=== PATIENT | male | born 1955 | race Caucasian/White ===

== ENCOUNTER 2019-10-03 06:11 | Day surgery (SDC) | payer OTHER ==
[~2019-10-03 06:11] MED LIST: Lactated Ringers 1,000 ML IV SCH; Lidocaine 1%/Sod Bicarbonate in NS 8.4% 1 ML Syringe IDERM PRN; Sodium Chloride 0.9% 10 ML Syringe FLUSH PRN
[2019-10-03] MEDS ORDERED: Lidocaine 1% 4 ML ONE (06:45)
[2019-10-03] MEDS ORDERED: Propofol 200 MG/20 ML SDV ONE ×4 (06:46→08:31)
--- NOTE | 2019-10-03 06:59 | PCM.HP.2 ---
H&P History of Present Illness - General Date of Service: 10/03/19 Source of Information: Patient History Limitations: Reports: No Limitations - History of Present Illness Other HPI/Comments: Due for screening colonoscopy. No worrisome symptoms or risk factors. - Related Data Allergies/Adverse Reactions: Allergies Allergy/AdvReac Type Severity Reaction Status Date / Time venom-honey bee Allergy Airway Verified 10/02/19 12:59 [bee venom (honey bee)] Tightness wasps Allergy Anaphylactic Uncoded 10/02/19 12:59 Shock Home Medications: Home Meds Aspirin 81 mg PO DAILY 10/02/19 [History] Calcium Carbonate [Calcium] 600 mg PO DAILY 10/02/19 [History] Cholecalciferol (Vitamin D3) [Vitamin D3] 2,000 unit PO DAILY 10/02/19 [History] Cinnamon Bark [Cinnamon] 500 mg PO DAILY 10/02/19 [History] Cyclobenzaprine [Flexeril] 10 mg PO BID PRN 10/02/19 [History] EPINEPHrine [Epipen] 1 dose IM ONETIME PRN 10/02/19 [History] Fish Oil/[place]-3 Fatty Acids [Fish Oil 1,000 MG] 1 gm PO DAILY 10/02/19 [History ] Insulin Degludec [Tresiba] 65 units SQ QAM 10/02/19 [History] Multivitamin [Daily Samuel] 1 tab PO DAILY 10/02/19 [History] Pioglitazone [Actos] 30 mg PO DAILY 10/02/19 [History] Turm/Ging/Americo/Yuc/Durga/Gayle/Hor [Tumersaid Tablet] 1 tab PO DAILY 10/02/19 [ History] Ubidecarenone [Coq-10] 100 mg PO DAILY 10/02/19 [History] atorvaSTATin Calcium [Atorvastatin Calcium] 10 mg PO DAILY 10/02/19 [History] lisinopriL [Lisinopril] 30 mg PO DAILY 10/02/19 [History] metFORMIN HCl [Metformin HCl] 1,000 mg PO BID 10/02/19 [History] Past Medical History HEENT History: Reports: None Cardiovascular History: Reports: High Cholesterol, Hypertension Respiratory History: Reports: Sleep Apnea Gastrointestinal History: Reports: None [employer] History: Reports: None Musculoskeletal History: Reports: Other (See Below) Other Musculoskeletal History: muscle spasm Neurological History: Reports: None Psychiatric History: Reports: None Endocrine/Metabolic History: Reports: Diabetes, Type II, Obesity/BMI 30+, Vitamin D Deficiency Hematologic History: Reports: None Immunologic History: Reports: None Oncologic (Cancer) History: Reports: None Dermatologic History: Reports: Other (See Below) Other Dermatologic History: onchomycosis - Past Surgical History Head Surgeries/Procedures: Reports: None HEENT Surgical History: Reports: LASIK, Tonsillectomy Cardiovascular Surgical History: Reports: None Respiratory Surgical History: Reports: None Other Male Surgeries/Procedures: testis surgery for hydrocele in approximately 2004 Endocrine Surgical History: Reports: None Neurological Surgical History: Reports: None Musculoskeletal Surgical History: Reports: None Oncologic Surgical History: Reports: None Dermatological Surgical History: Reports: None Social & Family History - Tobacco Use Smoking Status *Q: Former Smoker Used Tobacco, but Quit: Yes Month/Year Tobacco Last Used: 2004 - Caffeine Use Caffeine Use: Reports: Coffee, Tea - Alcohol Use Days Per Week of Alcohol Use: 7 Number of Drinks Per Day: 1 Total Drinks Per Week: 7 - Recreational Drug Use Recreational Drug Use: No Drug Use in Last 12 Months: No H&P Review of Systems - Review of Systems: Review Of Systems: See Below General: Reports: No Symptoms Exam - Exam Exam: See Below - Vital Signs Vital Signs: Last Vital Signs Temp 36.6 C 10/03/19 06:35 Pulse 71 10/03/19 06:35 Resp 16 10/03/19 06:35 BP 154/62 H 10/03/19 06:35 Pulse Ox 97 10/03/19 06:35 Weight: 147.418 kg - Exam General: Alert, Oriented GI/Abdominal Exam: Soft, Non-Tender Sepsis Event Note - Focused Exam Vital Signs: Vital Signs Temp Pulse Resp BP Pulse Ox 10/03/19 06:35 36.6 C 71 16 154/62 H 97 Date Exam was Performed: 10/03/19 Time Exam was Performed: 06:58 Problem List Initiated/Reviewed/Updated: Yes Orders Last 24hrs: Active Orders 24 hr Category Date Time Status Blood Glucose Check, Bedside [RC] ONETIME Care 10/03/19 00:01 Active Peripheral IV Care [RC] . DIRECTED Care 10/03/19 00:01 Active Peripheral IV Care [RC] . DIRECTED Care 10/03/19 00:01 Active Verify Patient Consent Obtain [RC] ASDIRECTED Care 10/03/19 00:01 Active Verify Patient Consent Obtain [RC] ASDIRECTED Care 10/03/19 00:01 Active Lactated Ringers [Ringers, Lactated] 1,000 ml Med 10/03/19 00:01 Active IV ASDIRECTED Lidocaine 1%/Sod Bicarbonate [Buffered Lidocaine 1% in Med 10/03/19 00:01 Active NS 8.4%] 0.25 ml IDERM ONETIME PRN Sodium Chloride 0.9% [Saline Flush] Med 10/03/19 00:01 Active 10 ml FLUSH ASDIRECTED PRN Medication Administration Instruction [OM.PC] Routine Oth 10/03/19 00:01 Ordered Medication Administration Instruction [OM.PC] Routine Oth 10/03/19 00:01 Ordered Peripheral IV Insertion Adult [OM.PC] Routine Oth 10/03/19 00:01 Ordered Peripheral IV Insertion Adult [OM.PC] Routine Oth 10/03/19 00:01 Ordered Medication Orders Lactated Ringer's (Ringers, Lactated) 1,000 mls @ 125 mls/hr IV ASDIRECTED DESTINY Stop: 10/03/19 23:00 Last Admin: 10/03/19 06:25 Dose: 125 mls/hr Lidocaine/Sodium Bicarbonate (Buffered Lidocaine 1% In Ns 8.4%) 0.25 ml IDERM ONETIME PRN PRN Reason: Prior to IV Start Stop: 10/03/19 18:00 Last Admin: 10/03/19 06:40 Dose: 0.25 ml Sodium Chloride (Saline Flush) 10 ml FLUSH ASDIRECTED PRN PRN Reason: Keep Vein Open Stop: 10/03/19 18:00 Assessment/Plan Comment:: screening colonoscopy today as scheduled - Mortality Measure Prognosis:: Good
--- NOTE | 2019-10-03 07:01 | PCM.PREANE ---
Preanesthetic Assessment - Procedure Proposed Procedure: Screening colonoscopy - Anesthesia/Transfusion/Family Hx Anesthesia History: Prior Anesthesia Without Reaction Family History of Anesthesia Reaction: No Transfusion History: No Prior Transfusion(s) Additional History: No history of anesthesia problems or difficulty with intubation - Review of Systems General: No Symptoms Pulmonary: No Symptoms Cardiovascular: No Symptoms Gastrointestinal: No Symptoms Neurological: No Symptoms Other: Reports: None - Physical Assessment NPO Status Date: 10/03/19 NPO Status Time: 04:00 Vital Signs: Last Vital Signs Temp 36.6 C 10/03/19 06:35 Pulse 71 10/03/19 06:35 Resp 16 10/03/19 06:35 BP 154/62 H 10/03/19 06:35 Pulse Ox 97 10/03/19 06:35 Height: 6 ft 2 in Weight: 147.418 kg ASA Class: 2 Mental Status: Alert & Oriented x3 Airway Class: Mallampati = 2 Dentition: Reports: Normal Dentition, Bridge ROM/Head Extension: Full Lungs: Clear to Auscultation, Normal Respiratory Effort, Other (mild "tightness " in upper airway a.e.b. "hearing air move" in trachea without auscultation) Cardiovascular: Regular Rate, Regular Rhythm - Allergies Allergies/Adverse Reactions: Allergies Allergy/AdvReac Type Severity Reaction Status Date / Time venom-honey bee Allergy Airway Verified 10/02/19 12:59 [bee venom (honey bee)] Tightness wasps Allergy Anaphylactic Uncoded 10/02/19 12:59 Shock - Acknowledgements Anesthesia Type Planned: MAC Pt an Appropriate Candidate for the Planned Anesthesia: Yes Alternatives and Risks of Anesthesia Discussed w Pt/Guardian: Yes Pt/Guardian Understands and Agrees with Anesthesia Plan: Yes Additional Comments: Patient pulled his own sugar this morning and was 134 PreAnesthesia Questionnaire HEENT History: Reports: None Cardiovascular History: Reports: High Cholesterol, Hypertension Respiratory History: Reports: Sleep Apnea Gastrointestinal History: Reports: None [employer] History: Reports: None Musculoskeletal History: Reports: Other (See Below) Other Musculoskeletal History: muscle spasm Neurological History: Reports: None Psychiatric History: Reports: None Endocrine/Metabolic History: Reports: Diabetes, Type II, Obesity/BMI 30+, Vitamin D Deficiency Hematologic History: Reports: None Immunologic History: Reports: None Oncologic (Cancer) History: Reports: None Dermatologic History: Reports: Other (See Below) Other Dermatologic History: onchomycosis - Past Surgical History Head Surgeries/Procedures: Reports: None HEENT Surgical History: Reports: LASIK, Tonsillectomy Cardiovascular Surgical History: Reports: None Respiratory Surgical History: Reports: None Other Male Surgeries/Procedures: testis surgery for hydrocele in approximately 2004 Endocrine Surgical History: Reports: None Neurological Surgical History: Reports: None Musculoskeletal Surgical History: Reports: None Oncologic Surgical History: Reports: None Dermatological Surgical History: Reports: None - SUBSTANCE USE Smoking Status *Q: Former Smoker Days Per Week of Alcohol Use: 7 Number of Drinks Per Day: 1 Total Drinks Per Week: 7 Recreational Drug Use History: No - HOME MEDS Home Medications: Home Meds Aspirin 81 mg PO DAILY 10/02/19 [History] Calcium Carbonate [Calcium] 600 mg PO DAILY 10/02/19 [History] Cholecalciferol (Vitamin D3) [Vitamin D3] 2,000 unit PO DAILY 10/02/19 [History] Cinnamon Bark [Cinnamon] 500 mg PO DAILY 10/02/19 [History] Cyclobenzaprine [Flexeril] 10 mg PO BID PRN 10/02/19 [History] EPINEPHrine [Epipen] 1 dose IM ONETIME PRN 10/02/19 [History] Fish Oil/[place]-3 Fatty Acids [Fish Oil 1,000 MG] 1 gm PO DAILY 10/02/19 [History ] Insulin Degludec [Tresiba] 65 units SQ QAM 10/02/19 [History] Multivitamin [Daily Samuel] 1 tab PO DAILY 10/02/19 [History] Pioglitazone [Actos] 30 mg PO DAILY 10/02/19 [History] Turm/Ging/Americo/Yuc/Durga/Gayle/Hor [Tumersaid Tablet] 1 tab PO DAILY 10/02/19 [ History] Ubidecarenone [Coq-10] 100 mg PO DAILY 10/02/19 [History] atorvaSTATin Calcium [Atorvastatin Calcium] 10 mg PO DAILY 10/02/19 [History] lisinopriL [Lisinopril] 30 mg PO DAILY 10/02/19 [History] metFORMIN HCl [Metformin HCl] 1,000 mg PO BID 10/02/19 [History] - CURRENT (IN HOUSE) MEDS Current Meds: Current Medications Lactated Ringer's (Ringers, Lactated) 1,000 mls @ 125 mls/hr IV ASDIRECTED DESTINY Stop: 10/03/19 23:00 Last Admin: 10/03/19 06:25 Dose: 125 mls/hr Lidocaine/Sodium Bicarbonate (Buffered Lidocaine 1% In Ns 8.4%) 0.25 ml IDERM ONETIME PRN PRN Reason: Prior to IV Start Stop: 10/03/19 18:00 Last Admin: 10/03/19 06:40 Dose: 0.25 ml Sodium Chloride (Saline Flush) 10 ml FLUSH ASDIRECTED PRN PRN Reason: Keep Vein Open Stop: 10/03/19 18:00 Discontinued Medications Lactated Ringer's (Ringers, Lactated) 1,000 mls @ 125 mls/hr IV ASDIRECTED [facility] Stop: 09/05/19 18:00 Lidocaine HCl (Xylocaine-Mpf 1%) Confirm Administered Dose 4 mls @ as directed .ROUTE .STK-MED ONE Stop: 10/03/19 06:46 Lidocaine/Sodium Bicarbonate (Buffered Lidocaine 1% In Ns 8.4%) 0.25 ml IDERM ONETIME PRN PRN Reason: Prior to IV Start Stop: 09/05/19 18:00 Propofol (Diprivan 20 Ml) Confirm Administered Dose 400 mg .ROUTE .STK-MED ONE Stop: 10/03/19 06:47 Sodium Chloride (Saline Flush) 10 ml FLUSH ASDIRECTED PRN PRN Reason: Keep Vein Open Stop: 09/05/19 18:00
[2019-10-03] MEDS ORDERED: Ondansetron 4 MG/2 ML SDV IVPUSH PRN (08:09)
--- NOTE | 2019-10-03 08:56 | PCM.POSTAN ---
POST ANESTHESIA ASSESSMENT - MENTAL STATUS Mental Status: Alert, Oriented - VITAL SIGNS Vital Signs: Last Vital Signs Temp 36.6 C 10/03/19 06:35 Pulse 71 10/03/19 06:35 Resp 16 10/03/19 06:35 BP 154/62 H 10/03/19 06:35 Pulse Ox 97 10/03/19 06:35 - RESPIRATORY Respiratory Status: Respiratory Rate WNL, Airway Patent, O2 Saturation Stable - CARDIOVASCULAR CV Status: Pulse Rate WNL, Blood Pressure Stable - GASTROINTESTINAL GI Status: No Symptoms - PAIN Pain Score: 0 - POST OP HYDRATION Hydration Status: Adequate & Stable - OBSERVATIONS Free Text/Narrative:: Routine MAC. Transfer to recovery. Handoff to RN. No concerns at this time. VSS , SV, GARZA, FAC, CTAB, 0/10.
[2019-10-03 09:25] VITALS: BP 139/67; PULSE 64
--- NOTE | 2019-10-03 10:47 | PCM48HPAN ---
Post Anesthesia Note - EVALUATION WITHIN 48HRS OF ANESTHETIC Vital Signs in Normal Range: Yes Patient Participated in Evaluation: No ([employer] attending another case) Respiratory Function Stable: Yes Airway Patent: Yes Cardiovascular Function Stable: Yes Hydration Status Stable: Yes Pain Control Satisfactory: Yes Nausea and Vomiting Control Satisfactory: Yes Mental Status Recovered: Yes Vital Signs: Last Vital Signs Temp 36.1 C 10/03/19 09:25 Pulse 64 10/03/19 09:25 Resp 16 10/03/19 09:25 BP 139/67 10/03/19 09:25 Pulse Ox 96 10/03/19 09:25 - COMMENTS/OBSERVATIONS Free Text/Narrative:: Routine recovery. No concerns. Discharged per routine.
--- NOTE | 2019-10-03 15:46 | PCM.PRNOTE ---
- Free Text/Narrative Note: date: 10/03/2019 Procedure: screening colonoscopy Endoscopist: Yared Barahona MD Findings: several small benign-appearing polyps scattered throughout the colon. Ileocecal valve seen. Prep was good. Detailed report: The patient was taken to the endoscopy suite and placed in left lateral decubitus position. Timeout was performed, and monitored anesthesia care was initiated. Visual inspection of the anus was unremarkable, digital exam of the rectum was unremarkable as well. The colonoscope was inserted and advanced all the way to the ileocecal valve. The prep was noted to be good, with some thin green fluid in portions of the colon that required suctioning. Several subcentimeter benign-appearing polypoid lesions were noted along the length of the colon on withdrawal. These were all biopsied, either using the hot snare, or the hot forceps with cauterization of the remaining abnormal tissue after biopsy was obtained. On retroflexion of the scope in the rectum, a polypoid lesion was noted just proximal to the anorectal complex. This was biopsied as well. No significant diverticular disease was identified. No hemorrhoidal disease identified. The patient tolerated the procedure well. Yared Barahona MD General Surgery
== END 2019-10-03 09:33 | disposition home or self-care (01) ==
LOC: JD.SDS 06:11
PROVIDERS: ATTEND Surgery
DX: Z12.11 Encounter for screening for malignant neoplasm of colon (principal); K63.5 Polyp of colon; D12.5 Benign neoplasm of sigmoid colon; E78.00 Pure hypercholesterolemia, unspecified; I10 Essential (primary) hypertension; E11.9 Type 2 diabetes mellitus without complications; E55.9 Vitamin D deficiency, unspecified; E66.9 Obesity, unspecified; Z91.030 Bee allergy status; Z87.891 Personal history of nicotine dependence; Z68.41 Body mass index [BMI] 40.0-44.9, adult
CPT/HCPCS: 00812; J2001; J2704; J7120